=== PATIENT | female | born 1995 | race African-American/Black ===

== ENCOUNTER 2016-06-30 07:54 | Emergency (ER) | payer OTHER ==
[~2016-06-30] VITALS: Wt 60.9 kg
[~2016-06-30 07:54] MED LIST: PREN-29 PO
[2016-06-30] MEDS ORDERED: IBUPROFEN 600 MG TAB PO ONE (09:00)
--- NOTE | 2016-06-30 09:00 | ERD ---
ER Documentation Chief Complaint Date/Time DATE: 06/30/16 TIME: 08:56 Chief Complaint recent cough with right side chest wall pain and right upper back pain HPI 21-year-old female comes in with a history of cough now complaining of right sided chest pain that radiates to her back for the past week. She states that she had a dry cough, that has improved, she has no pain on the right side, sharp , worse with any inspiration or expiration or movement of her chest. She denies any fevers with this or trauma. No shortness of breath. ROS All systems reviewed and are negative except as per history of present illness. Medications Home Meds Active Scripts Naproxen* (Naprosyn*) 500 Mg Tablet, 500 MG PO BID Y for PAIN AND/OR INFLAMMATION, #30 TAB Prov:JESSICA FULTON PA-C 06/30/16 Reported Medications Vit-Fe Fumarate-FA* (Alexandr Tablet*) 1 Tab Tablet, 1 TAB PO, TAB 09/16/14 Allergies Allergies: Coded Allergies: phenytoin (Verified Allergy, Mild, swelling and burning sensation at IV site, 10/06/14) PMhx/Soc Medical and Surgical Hx: pt denies Medical Hx, pt denies Surgical Hx Hx Alcohol Use: No Hx Substance Use: No Hx Tobacco Use: No Smoking Status: Never smoker Physical Exam Vitals Vital Signs Date Time Temp Pulse Resp B/P Pulse Ox O2 Delivery O2 Flow Rate FiO2 06/30/16 08:00 98.0 70 21 123/73 99 Physical Exam General: Well-developed, well-nourished. The patient appears in no acute distress. HEENT: Head is normocephalic, atraumatic. No scleral icterus. Pupils are equal , round, and reactive. Oral mucous membranes are moist. No pharyngeal erythema. Neck: Supple. Nontender. Lungs: Clear to auscultation. Normal air movement. Reproducible chest pain with inspiration, expiration, and chest movement Heart: Regular rate and rhythm. S1 and S2 are normal. No murmurs, gallops, or rubs. Abdomen: Soft, nontender, nondistended. Bowel sounds are normoactive. Extremities: No clubbing or cyanosis. Normal pulses. Moving extremities x 4. No weakness. Neurologic: Alert and oriented 3. No focal deficits. Skin: Normal turgor. No rash or lesions. Results 24 hrs Current Medications Medications (Trade) Dose Ordered Sig/Tam Route PRN Reason Start Time Stop Time Status Last Admin Dose Admin Ibuprofen (Motrin) 600 mg ONCE ONCE PO 06/30/16 09:00 06/30/16 09:01 DC 06/30/16 08:48 Chest X-ray 1V Interpreted by me: Also the radiologist Soft Tissue: No acute abnormalities Bones: No acute abnormalities Mediastinum/Cardiac Silhouette/Lungs: No acute abnormalities Procedures/MDM ED course: EKG: Reviewed by Dr. Sanabria Rate/Rhythm: Normal Sinus Rhythm, rate of 66 QRS, ST, T-waves: No changes consistent w/ acute ischemia Impression: No evidence of ischemia or arrhythmia Patient was medicated with ibuprofen 600 mg. MDM: 21-year-old female comes in with right-sided chest pain, with history of recent cough, patient comes in with costochondritis. Her x-ray was normal, EKG shows normal sinus rhythm without any ischemic changes. I do not see any evidence on examination or history to consider this chest pain is being cardiac. Her x-ray was done given her recent history of cough, there was no evidence of pneumonia or pneumothorax or hemopneumothorax. Her chest pain is reproducible when she takes a deep breath in or out however she is PERC negative , I did at this time pulmonary embolus suspicion is low. She was given Motrin at this time, and feeling better, she will be given Naprosyn to take at home. Departure Diagnosis: Primary Impression: Chest wall pain Condition: JESSICA Platt PA-C Jun 30, 2016 09:00
--- NOTE | 2016-06-30 09:16 | RADRPT ---
PROCEDURE: XR Chest. CLINICAL INDICATION: Chest pain TECHNIQUE: AP view of the chest was performed. COMPARISON: None. FINDINGS: The lungs are clear. The lung volumes are normal. The heart size is normal. The osseous structure s are intact. IMPRESSION: Negative examination. RPTAT: QQ .Scout Huggins MD, MD Date Time Electronically viewed and signed by .Scout Huggins MD, MD on 06/30/2016 09:16 .M/
[2016-06-30] MEDS ORDERED: NAPR-260 PO (09:26)
== END 2016-06-30 09:35 | disposition home or self-care (01) ==
LOC: FTE 07:54
DX: R07.89 Other chest pain (principal)
CPT/HCPCS: 71010; Z7502; Z7610; 93005